=== PATIENT | male | born 1945 | race Caucasian/White ===

== ENCOUNTER 2016-12-11 14:20 | Inpatient (IN) | payer MEDICARE, OTHER ==
[2016-12-11] MEDS ORDERED: IV NORMAL SALINE 100ML 100 ML ONE (14:50)
[2016-12-11] MEDS ORDERED: dilTIAZem 25 MG/5 ML VIAL ONE (14:51)
--- NOTE | 2016-12-11 15:02 | RAD ---
Portable chest, 12/11/2016: History: Palpitations The heart size and pulmonary vascularity are normal. The lungs are clear. There is no evidence of pleural fluid. IMPRESSION: No acute cardiopulmonary abnormality is detected.
[2016-12-11 15:03] LABS: BASO # 0.1 x10^3/uL (0.0-0.2); BASO % 1 % (0-3); EOS # 0.1 x10^3/uL (0.0-0.7); EOS % 1 % (0-3); HEMATOCRIT 40.6 % (39.0-53.0); HEMOGLOBIN 13.8 g/dL (13.0-17.5); LYMPH # 1.1 x10^3/uL (1.0-4.8); LYMPH % 9 % (24-48); MEAN CORPUSCULAR HEMOGLOBIN 33 pg (25-35); MEAN CORPUSCULAR HGB CONC 34 g/dL (31-37); MEAN CORPUSCULAR VOLUME 97 fL (79-100); MONO # 0.9 x10^3/uL (0.0-1.1); MONO % 7 % (0-9); NEUT # 10.1 x10^3uL (1.8-7.7); NEUT % 82 % (31-73); PLATELET COUNT 211 x10^3/uL (140-400); RED BLOOD COUNT 4.21 x10^6/uL (4.30-5.70); RED CELL DISTRIBUTION WIDTH 13.2 % (11.5-14.5); WHITE BLOOD COUNT 12.3 x10^3/uL (4.0-11.0)
[2016-12-11] MEDS ORDERED: dilTIAZem 25 MG/5 ML VIAL IVP ONE (15:15)
[2016-12-11 15:16] LABS: ALBUMIN 3.8 g/dL (3.4-5.0); ALBUMIN/GLOBULIN RATIO 1.1 (1.0-1.7); CALCIUM 9.2 mg/dL (8.5-10.1); CREATININE 1.1 mg/dL (0.7-1.3); GFR 66.2; POTASSIUM 3.5 mmol/L (3.5-5.1); TOTAL BILIRUBIN 0.7 mg/dL (0.2-1.0); TOTAL PROTEIN 7.4 g/dL (6.4-8.2)
--- NOTE | 2016-12-11 15:32 | EKG ---
[address] [address] Test Date: 2016-12-11 Test Time: 15:00:49 Pat Name: EMRE WING Department: Room: Gender: M Dog Handler: : 1945 Requested By: ALMA ARANA Order Number: [id number] Reading MD: Amish Franco Measurements Intervals [place] Rate: 157 P: [place]: QRS: 40 QRSD: 78 T: 41 QT: 292 QTc: 479 Interpretive Statements ATRIAL FIB./FLUTTER WITH RAPID VENTRICULAR RESPONSE VENTRICULAR PREMATURE COMPLEX(ES) QRS(T) CONTOUR ABNORMALITY CONSIDER ANTEROSEPTAL MYOCARDIAL DAMAGE RI6.01 Unconfirmed report No previous ECG available for comparison Electronically Signed On 12-15-2016 10:36:26 CDT by Amish Franco
--- NOTE | 2016-12-11 15:33 | EKG ---
[address] [address] Test Date: 2016-12-11 Test Time: 15:28:46 Pat Name: EMRE WING Department: Room: Gender: M It Systems Analyst: : 1945 Requested By: ALMA ARANA Order Number: [id number] Reading MD: Amish Franco Measurements Intervals [place] Rate: 95 P: 53 MA: 168 QRS: 28 QRSD: 80 T: 62 QT: 354 QTc: 448 Interpretive Statements SINUS RHYTHM QRS(T) CONTOUR ABNORMALITY CONSIDER ANTEROSEPTAL MYOCARDIAL DAMAGE RI6.01 Unconfirmed report No previous ECG available for comparison Electronically Signed On 12-15-2016 10:36:45 CDT by Amish Franco
--- NOTE | 2016-12-11 15:56 | PHYS DOC ---
Adult General Chief Complaint Chief Complaint: Palpitations HPI HPI This 71-year-old gentleman since with atrial fibrillation. He states that he first began having problems with atrial fibrillation at the end of 2015 and since that time he took 5 or 6 attacks. He only takes Lopressor 50 mg by mouth twice a day as needed he states that he felt palpitations he felt a little lightheaded denies chest pain and denies any other problems. Denies history of heart and in fact is very athletic and hikes great deal. He is a nonsmoker does not have diabetes, no hx of hypertension however his family history includes that his father had a stroke in his mother had a stroke and he had a brother age 79 who has atrial fibrillation. Review of Systems Review of Systems Constitutional: Denies fever or chills [] Eyes: Denies change in visual acuity, redness, or eye pain [] HENT: Denies nasal congestion or sore throat [] Respiratory: Denies cough or shortness of breath [] Cardiovascular: No additional information not addressed in HPI [] GI: Denies abdominal pain, nausea, vomiting, bloody stools or diarrhea does have a history of acid reflux and occasionally takes Prilosec : Denies dysuria or hematuria [] Musculoskeletal: Denies back pain or joint pain . History of sciatica and occasionally this gives him problems Integument: Denies rash or skin lesions [] Neurologic: Denies headache, focal weakness or sensory changes [] Endocrine: Denies polyuria or polydipsia [] Current Medications Current Medications Current Medications Medications (Trade) Dose Ordered Sig/Liz Start Time Stop Time Status Last Admin Dose Admin Diltiazem HCl (Cardizem) 25 mg STK-MED ONCE 12/11/16 14:51 12/11/16 14:52 DC Diltiazem HCl 125 mg/Dextrose 125 ml @ 10 mls/hr 1X ONCE 12/11/16 14:45 12/12/16 03:14 12/11/16 14:45 10 MLS/HR Sodium Chloride 100 ml @ As Directed STK-MED ONCE 12/11/16 14:50 12/11/16 14:51 DC Allergies Allergies Allergies Coded Allergies Type Severity Reaction Last Updated Verified Penicillins Allergy Unknown 12/11/16 Yes Physical Exam Physical Exam Constitutional: Well developed, well nourished, no acute distress, non-toxic appearance. [] HENT: Normocephalic, atraumatic, bilateral external ears normal, oropharynx moist, no oral exudates, nose normal. [] Eyes: PERRLA, EOMI, conjunctiva normal, no discharge. [] Neck: Normal range of motion, no tenderness, supple, no stridor. [] Cardiovascular: Irregularly irregular tachycardia Lungs & Thorax: Bilateral breath sounds clear to auscultation [] Abdomen: Bowel sounds normal, soft, no tenderness, no masses, no pulsatile masses. [] Skin: Warm, dry, no erythema, no rash. [] Back: No tenderness, no CVA tenderness. [] Extremities: No tenderness, no cyanosis, no clubbing, ROM intact, no edema. [] Neurologic: Alert and oriented X 3, normal motor function, normal sensory function, no focal deficits noted. [] Psychologic: Affect normal, judgement normal, mood normal. [] Current Patient Data Vital Signs Vital Signs Date Time Temp Pulse Resp B/P (MAP) Pulse Ox O2 Delivery O2 Flow Rate FiO2 12/11/16 14:59 159 136/76 Lab Results Laboratory Tests Test 12/11/16 14:46 White Blood Count 12.3 x10^3/uL (4.0-11.0) H Red Blood Count 4.21 x10^6/uL (4.30-5.70) L Hemoglobin 13.8 g/dL (13.0-17.5) Hematocrit 40.6 % (39.0-53.0) Mean Corpuscular Volume 97 fL (79-100) Mean Corpuscular Hemoglobin 33 pg (25-35) Mean Corpuscular Hemoglobin Concent 34 g/dL (31-37) Red Cell Distribution Width 13.2 % (11.5-14.5) Platelet Count 211 x10^3/uL (140-400) Neutrophils (%) (Auto) 82 % (31-73) H Lymphocytes (%) (Auto) 9 % (24-48) L Monocytes (%) (Auto) 7 % (0-9) Eosinophils (%) (Auto) 1 % (0-3) Basophils (%) (Auto) 1 % (0-3) Neutrophils # (Auto) 10.1 x10^3uL (1.8-7.7) H Lymphocytes # (Auto) 1.1 x10^3/uL (1.0-4.8) Monocytes # (Auto) 0.9 x10^3/uL (0.0-1.1) Eosinophils # (Auto) 0.1 x10^3/uL (0.0-0.7) Basophils # (Auto) 0.1 x10^3/uL (0.0-0.2) Prothrombin Time 11.0 SEC (9.4-11.4) Prothrombin Time INR 1.1 (0.9-1.1) PTT 26 SEC (23-33) Sodium Level 140 mmol/L (136-145) Potassium Level 3.5 mmol/L (3.5-5.1) Chloride Level 104 mmol/L (98-107) Carbon Dioxide Level 25 mmol/L (21-32) Anion Gap 11 (6-14) Blood Urea Nitrogen 17 mg/dL (8-26) Creatinine 1.1 mg/dL (0.7-1.3) Estimated GFR (Cockcroft-Gault) 66.2 BUN/Creatinine Ratio 15 (6-20) Glucose Level 107 mg/dL (70-99) H Calcium Level 9.2 mg/dL (8.5-10.1) Total Bilirubin 0.7 mg/dL (0.2-1.0) Aspartate Amino Transferase (AST) 30 U/L (15-37) Alanine Aminotransferase (ALT) 20 U/L (16-63) Alkaline Phosphatase 78 U/L (46-116) Troponin I Quantitative < 0.017 ng/mL (0-0.055) Total Protein 7.4 g/dL (6.4-8.2) Albumin 3.8 g/dL (3.4-5.0) Albumin/Globulin Ratio 1.1 (1.0-1.7) EKG EKG EKG reveals atrial fibrillation with rapid ventricular response noted at 3 PM After Cardizem and bolus and drip he now has a sinus rhythm with a rate of [address] or T-wave changes except for some minor nonspecific ST-T wave anterior [] cardiac changes Radiology/Procedures Radiology/Procedures X-rays unremarkable [] Impressions: Atrial fibrillation with rapid ventricular response Course & Med Decision Making Course & Med Decision Making All of the laboratory evaluation is unremarkable Because this patient has had now about 7 episodes of atrial fibrillation with rapid ventricular response and because he really not properly anticoagulated nor is he on medication to control this he will be admitted to our hospital for further evaluation He will be admitted to the hospitalist service and with cardiology consult [] Dragon Disclaimer Dragon Disclaimer This chart was dictated in whole or in part using Voice Recognition software in a busy, high-work load, and often noisy Emergency Department environment. It may contain unintended and wholly unrecognized errors or omissions. ALMA ARANA MD Dec 11, 2016 15:56
[2016-12-11] MEDS ORDERED: ONDANSETRON PF 4 MG/2 ML VIAL. IV PRN (18:45)
[2016-12-11 19:07] VITALS: BP 130/68
[2016-12-11 20:11] VITALS: BP 119/62
[2016-12-11 21:00] VITALS: BP 142/67
[2016-12-11 22:00] VITALS: BP 119/70
[2016-12-11 23:12] VITALS: BP 94/51
[2016-12-12] VITALS (10 sets, daily range): BP systolic 122–150; BP diastolic 67–87
[2016-12-12 06:25] LABS: BASO % 1 % (0-3); EOS # 0.2 x10^3/uL (0.0-0.7); EOS % 2 % (0-3); HEMATOCRIT 39.8 % (39.0-53.0); HEMOGLOBIN 13.5 g/dL (13.0-17.5); LYMPH # 1.3 x10^3/uL (1.0-4.8); LYMPH % 14 % (24-48); MEAN CORPUSCULAR HEMOGLOBIN 33 pg (25-35); MEAN CORPUSCULAR HGB CONC 34 g/dL (31-37); MEAN CORPUSCULAR VOLUME 97 fL (79-100); MONO % 11 % (0-9); NEUT # 6.5 x10^3uL (1.8-7.7); NEUT % 73 % (31-73); PLATELET COUNT 208 x10^3/uL (140-400); RED CELL DISTRIBUTION WIDTH 13.5 % (11.5-14.5); WHITE BLOOD COUNT 8.9 x10^3/uL (4.0-11.0)
[2016-12-12 06:37] LABS: ALBUMIN 3.4 g/dL (3.4-5.0); CALCIUM 8.4 mg/dL (8.5-10.1); CREATININE 0.9 mg/dL (0.7-1.3); GFR 83.4; POTASSIUM 3.4 mmol/L (3.5-5.1); TOTAL BILIRUBIN 0.9 mg/dL (0.2-1.0); TOTAL PROTEIN 6.8 g/dL (6.4-8.2)
[2016-12-12] MEDS ORDERED: POTASSIUM CHLORIDE 20 MEQ TABLET.ER. PO ONE (10:30)
--- NOTE | 2016-12-12 10:44 | PDOC2 ---
CESAR EASTMAN CASINO FLOOR PERSON 12/12/16 1044: CONSULT Date of Admission DATE: 12/12/16 TIME: 10:28 Reason for Consult: afib rvr Problem List Problems Medical Problems: (1) Afib Status: Acute History of Present Illness Mr Mcnamara is a 71 year old male with history of paroxysmal atrial fibrillation which started in 2015. He lives in [place] and follows with a assistant vice president at home. He reports that he has had episodes of palpitations with associated dyspnea and lightheadedness starting in 2016. He was noted to have paroxysmal afib and started on beta blockers which he was unable to tolerate. He has had 6-7 episodes over the last ~18 months and takes aspirin for stroke prophylaxis. Yesterday he had sudden onset of palpitations and "funny feeling" so presented to ED where he was noted to be in atrial fibrillation with RVR. He was started on IV cardizem and converted to sinus rhythm during the night. His cardizem was stopped at 5am. He is currently symptom free and in sinus rhythm in the low 60s. Past Medical History paroxysmal atrial fibrillation otherwise unremarkable Past Surgical History unremarkable Family History CVA in both parents, atrial fibrillation in his brother Social History non smoker, no significant ETOH, no illicit drugs, very active and hikes regularly Current Medications Current Medications Diltiazem HCl (Cardizem) 20 mg 1X ONCE IVP Last administered on 12/11/16 14: 59; Start 12/11/16 at 15:15; Stop 12/11/16 at 15:16; Status DC Diltiazem HCl 125 mg/Dextrose 125 ml @ 10 mls/hr 1X ONCE IV Last administered on 12/11/16t 14:45; Start 12/11/16 at 14:45; Stop 12/12/16 at 03:14 ; Status DC Sodium Chloride 100 ml @ As Directed STK-MED ONCE .ROUTE ; Start 12/11/16 at 14 :50; Stop 12/11/16 at 14:51; Status DC Diltiazem HCl (Cardizem) 125 mg STK-MED ONCE IV ; Start 12/11/16 at 14:50; Stop 12/11/16 at 14:51; Status DC Diltiazem HCl (Cardizem) 25 mg STK-MED ONCE .ROUTE ; Start 12/11/16 at 14:51; Stop 12/11/16 at 14:52; Status DC Ondansetron HCl (Zofran) 4 mg PRN Q8HRS PRN IV NAUSEA/VOMITING; Start 12/11/16 at 18:45 Aspirin (Aspirin Enteric Coated) 325 mg DAILYWBKFT PO ; Start 12/12/16 at 12:00 Potassium Chloride (Klor-Con) 40 meq 1X ONCE PO ; Start 12/12/16 at 10:30; Stop 12/12/16 at 10:31 Allergies: Coded Allergies: Penicillins (Verified Allergy, Intermediate, 12/12/16) Review of System as per HPI General: Alert, Oriented X3, Cooperative, No acute distress HEENT: Atraumatic, EOMI, Mucous membr. moist/pink Lungs: Clear to auscultation, Normal air movement Heart: Regular rate, Normal S1, Normal S2 Abdomen: Normal bowel sounds, Soft, No tenderness Extremities: No cyanosis, No edema, Normal pulses Neuro: Normal speech, Strength at 5/5 X4 ext Psych/Mental Status: Mental status NL, Mood NL VITALS Vital Signs Date Time Temp Pulse Resp B/P (MAP) Pulse Ox O2 Delivery O2 Flow Rate FiO2 12/12/16 10:00 65 17 143/75 (97) 98 Room Air 12/12/16 07:49 98.4 Labs Laboratory Tests Test 12/11/16 14:46 12/11/16 14:48 12/12/16 05:35 White Blood Count 12.3 x10^3/uL (4.0-11.0) 8.9 x10^3/uL (4.0-11.0) Red Blood Count 4.21 x10^6/uL (4.30-5.70) 4.10 x10^6/uL (4.30-5.70) Hemoglobin 13.8 g/dL (13.0-17.5) 13.5 g/dL (13.0-17.5) Hematocrit 40.6 % (39.0-53.0) 39.8 % (39.0-53.0) Mean Corpuscular Volume 97 fL (79-100) 97 fL (79-100) Mean Corpuscular Hemoglobin 33 pg (25-35) 33 pg (25-35) Mean Corpuscular Hemoglobin Concent 34 g/dL (31-37) 34 g/dL (31-37) Red Cell Distribution Width 13.2 % (11.5-14.5) 13.5 % (11.5-14.5) Platelet Count 211 x10^3/uL (140-400) 208 x10^3/uL (140-400) Neutrophils (%) (Auto) 82 % (31-73) 73 % (31-73) Lymphocytes (%) (Auto) 9 % (24-48) 14 % (24-48) Monocytes (%) (Auto) 7 % (0-9) 11 % (0-9) Eosinophils (%) (Auto) 1 % (0-3) 2 % (0-3) Basophils (%) (Auto) 1 % (0-3) 1 % (0-3) Neutrophils # (Auto) 10.1 x10^3uL (1.8-7.7) 6.5 x10^3uL (1.8-7.7) Lymphocytes # (Auto) 1.1 x10^3/uL (1.0-4.8) 1.3 x10^3/uL (1.0-4.8) Monocytes # (Auto) 0.9 x10^3/uL (0.0-1.1) 1.0 x10^3/uL (0.0-1.1) Eosinophils # (Auto) 0.1 x10^3/uL (0.0-0.7) 0.2 x10^3/uL (0.0-0.7) Basophils # (Auto) 0.1 x10^3/uL (0.0-0.2) 0.0 x10^3/uL (0.0-0.2) Prothrombin Time 11.0 SEC (9.4-11.4) Prothromb Time International Ratio 1.1 (0.9-1.1) Activated Partial Thromboplast Time 26 SEC (23-33) Sodium Level 140 mmol/L (136-145) 143 mmol/L (136-145) Potassium Level 3.5 mmol/L (3.5-5.1) 3.4 mmol/L (3.5-5.1) Chloride Level 104 mmol/L (98-107) 109 mmol/L (98-107) Carbon Dioxide Level 25 mmol/L (21-32) 27 mmol/L (21-32) Anion Gap 11 (6-14) 7 (6-14) Blood Urea Nitrogen 17 mg/dL (8-26) 17 mg/dL (8-26) Creatinine 1.1 mg/dL (0.7-1.3) 0.9 mg/dL (0.7-1.3) Estimated GFR (Cockcroft-Gault) 66.2 83.4 BUN/Creatinine Ratio 15 (6-20) 19 (6-20) Glucose Level 107 mg/dL (70-99) 93 mg/dL (70-99) Calcium Level 9.2 mg/dL (8.5-10.1) 8.4 mg/dL (8.5-10.1) Total Bilirubin 0.7 mg/dL (0.2-1.0) 0.9 mg/dL (0.2-1.0) Aspartate Amino Transf (AST/SGOT) 30 U/L (15-37) 22 U/L (15-37) Alanine Aminotransferase (ALT/SGPT) 20 U/L (16-63) 21 U/L (16-63) Alkaline Phosphatase 78 U/L (46-116) 68 U/L (46-116) Troponin I Quantitative < 0.017 ng/mL (0-0.055) Total Protein 7.4 g/dL (6.4-8.2) 6.8 g/dL (6.4-8.2) Albumin 3.8 g/dL (3.4-5.0) 3.4 g/dL (3.4-5.0) Albumin/Globulin Ratio 1.1 (1.0-1.7) 1.0 (1.0-1.7) Magnesium Level 2.0 mg/dL (1.8-2.4) 2.0 mg/dL (1.8-2.4) Images EKG - atrial fibrillation with rapid ventricular response, non specific st abn. CXR - no acute abnormalities Assessment/Plan 1. Paroxysmal atrial fibrillation - now off Cardizem and in sinus rhythm. [id number]=3. Home with aspirin for stroke prophylaxis and to follow up with his assistant vice president to discuss medical mgmt vs RFA. As he was previously intolerant to metoprolol and his resting heart rate is low 60's, will defer oral cardizem at this time. Problems: MARLA WILD MD 12/12/16 1440: CONSULT Allergies: Coded Allergies: Penicillins (Verified Allergy, Intermediate, 12/12/16) Assessment/Plan Patient seen and examined The patient reports feeling significantly better today. Paroxysmal atrial fibrillation. Has converted to sinus rhythm on IV Cardizem. Patient is aware of a history of paroxysmal atrial fibrillation. He has been intolerant to beta blockers and therefore discontinued them. He looks and feels much better at this time. We discussed various approaches to his paroxysmal atrial fibrillation. We will not attempt further beta deborah treatment. Due to a heart rate approximately 60 we will also hold calcium channel blockers at this time. We did discuss anticoagulation including risks and benefits. At this time he does not wish to start anticoagulants. He agrees to take an aspirin a day. He is scheduled to see a assistant vice president in his [facility] in the next 2 -3 weeks. Problems: CESAR EASTMAN APRN Dec 12, 2016 10:44 MARLA WILD MD Dec 12, 2016 14:40
[2016-12-12] MEDS ORDERED: ASPI325T11 PO (10:55)
[2016-12-12] MEDS ORDERED: ASPIRIN ENTERIC COATED 325 MG TABLET.DR. PO SCH (12:00)
--- NOTE | 2016-12-12 17:23 | SSS ---
ADMIT DATE: 12/12/2016 DISCHARGE DIAGNOSES: 1. Paroxysmal atrial fibrillation, now resolved. 2. History of atrial fibrillation as well, 3. History of melanoma. 4. History of basal cell carcinoma. 5. Hypokalemia, replaced and leukocytosis secondary to inflammation. HOSPITAL COURSE: This is a very pleasant 71-year-old male, who hails from [place], [place]. He is in this area camping in [place], [place]. Yesterday, he got up, he was feeling fine. He climbed 75 steps and went to a meeting, half-way through the meeting he felt rapid heart rate. He tried to ignore it. He went to lunch, but the heartbeat continued to be fast and he was transported to [facility] and found to be in atrial fibrillation. PAST MEDICAL HISTORY: Melanoma, basal cell carcinoma of the nose and atrial fibrillation. PAST SURGICAL HISTORY: Surgeries for melanoma and basal cell carcinoma. MEDICATIONS: None. ALLERGIES: PENICILLIN. FAMILY HISTORY: Mother at 86, father at 77. Both were smokers. Brother is 79, who has also had AFib. HABITS: Nontobacco, nonalcohol, no marijuana. Retired [employer]. He has also worked for [employer]. REVIEW OF SYSTEMS: Positive for some slight lightheadedness, otherwise negative. OBJECTIVE: VITAL SIGNS: Initial heart rate was 158, blood pressure of 136/76 in atrial fibrillation. His heart rate prior to discharge 143/75, pulse 65, respirations 17, pulse ox 98% on room air. GENERAL: Pleasant 71-year-old, in no acute distress. His eyes were clear. His hearing is normal. His nose was patent. He has a large scar from basal cell carcinoma removal on the left side. His throat was clear. NECK: Supple. There are no carotid bruits. LUNGS: Clear to auscultation. CARDIOVASCULAR: Regular rhythm and rate without murmur. ABDOMEN: Soft, nontender. EXTREMITIES: Without edema. NEUROLOGIC: He is intact. LABORATORY DATA: Initial white count 12.3. There is no evidence of infection and potassium was 3.4. Magnesium was normal. CONSULTANTS: Cardiology. DISPOSITION: Home with self care. He will start a whole aspirin. He is not a candidate for beta blockers that he has bradycardia with it. Followup with his regular physician and actually has an appointment in the near future. He was advised to possibly to take a magnesium and potassium supplement [id number] and have his blood work checked in about a week. TIMOTHY GONZALEZ DO DR: SHREE/jenny JOB#: [id number] / [id number]
== END 2016-12-12 11:23 | disposition home or self-care (01) | DRG 308 ==
LOC: ER 14:20 → ICU 16:02 → OBSVTOIN 18:42
PROVIDERS: ADMIT Family Medicine; ATTEND Family Medicine
DX: I48.0 Paroxysmal atrial fibrillation (principal); R65.11 Systemic inflammatory response syndrome (SIRS) of non-infectious origin with acute organ dysfunction; D72.829 Elevated white blood cell count, unspecified; E87.6 Hypokalemia; Z79.899 Other long term (current) drug therapy; Z80.8 Family history of malignant neoplasm of other organs or systems; Z82.3 Family history of stroke; Z85.820 Personal history of malignant melanoma of skin; Z88.0 Allergy status to penicillin; Z79.1 Long term (current) use of non-steroidal anti-inflammatories (NSAID)
CPT/HCPCS: 36415; 71010; 80053; 83735; 84484; 85027; 85610; 85730; 87641; 93005; 96365; 96366; G0378; G0379; J3490; 99285-25